=== PATIENT | male | born 1975 | race Caucasian/White ===

== ENCOUNTER 2018-06-29 05:40 | Day surgery (SDC) | payer MEDICARE ==
[~2018-06-29] VITALS: Ht 190.5 cm; Wt 117.4 kg
[~2018-06-29 05:40] MED LIST: ASPI-496 PO; CHOL5000 PO; LEVO100T5 PO; LEVO88TA4 PO; METH-356 PO; PRAV20TA2 PO
[2018-06-29] MEDS ORDERED: LACTATED RINGERS 1,000 ML IV SCH (06:05)
[2018-06-29 06:06] VITALS: BP 122/86
[2018-06-29] MEDS ORDERED: morphine SULFATE/PF 1 MG/ML, 10ML ONE (06:22)
[2018-06-29] MEDS ORDERED: LIDOCAINE 1%-EPI 1:100K, 30ML ONE (06:22)
[2018-06-29] MEDS ORDERED: LIDOCAINE-MPF 1%, 2ML INFIL ONE (06:30)
[2018-06-29] MEDS ORDERED: MIDAZOLAM 1 MG/ML, 2ML ONE (06:50)
[2018-06-29] MEDS ORDERED: FENTANYL PF 250 MCG/5ML ONE (06:50)
[2018-06-29] MEDS ORDERED: MEPERIDINE/PF 25MG/0.5ML IVPush PRN (07:00)
[2018-06-29] MEDS ORDERED: SCOPOLAMINE PATCH, 1.5MG PATCH.TD72 TD PRN (07:00)
[2018-06-29] MEDS ORDERED: hydrALAzine 20 MG/ML, 1ML IV PRN (07:00)
[2018-06-29] MEDS ORDERED: LABETALOL 5MG/ML, 20ML IV PRN (07:00)
[2018-06-29] MEDS ORDERED: ACETAMINOPHEN 325 MG TABLET PO PRN (07:00)
[2018-06-29] MEDS ORDERED: OXYcodone 5 MG/5 ML ORAL.SOL UDC PO PRN (07:00)
[2018-06-29] MEDS ORDERED: LORazepam 2 MG/ML, 1ML IVPush PRN (07:00)
[2018-06-29] MEDS ORDERED: METOCLOPRAMIDE 5 MG/ML, 2ML IV PRN (07:00)
[2018-06-29] MEDS ORDERED: CEFAZOLIN 1,000 MG ONE (07:18)
[2018-06-29] MEDS ORDERED: PROPOFOL 10 MG/ML, 20ML ONE (07:18)
[2018-06-29] MEDS ORDERED: DEXAMETHASONE 4 MG/ML, 1ML ONE (07:18)
[2018-06-29] MEDS ORDERED: ONDANSETRON 2MG/ML, 2ML ONE (07:18)
[2018-06-29] MEDS ORDERED: SUCCINYLCHOLINE 20 MG/ML, 10ML ONE (07:18)
[2018-06-29] MEDS ORDERED: LIDOCAINE 1%, 20ML ONE (08:16)
[2018-06-29] MEDS ORDERED: FENTANYL PF 100 MCG/2ML ONE (08:42)
[2018-06-29] MEDS: FENTANYL PF 100 MCG/2ML IV PRN ×2 (08:44→08:50)
[2018-06-29] MEDS ORDERED: KETOROLAC 30 MG/1 ML ONE (08:48)
[2018-06-29] MEDS ORDERED: KETOROLAC 30 MG/1 ML IVPush ONE (09:00)
[2018-06-29] MEDS ORDERED: METHADONE 10 MG TABLET PO ONE (09:00)
[2018-06-29] MEDS: HYDROmorphone 2 MG/ML, 1ML IVPush PRN ×2 (09:01→09:10)
[2018-06-29] MEDS ORDERED: HYDROmorphone 2 MG/ML, 1ML ONE (09:09)
[2018-06-29] MEDS ORDERED: OXYcodone 5 MG/5 ML ORAL.SOL UDC ONE (09:23)
== END 2018-06-29 10:35 | disposition home or self-care (01) ==
LOC: OUT 05:40
PROVIDERS: ATTEND Orthopaedic Surgery
DX: M67.261 Synovial hypertrophy, not elsewhere classified, right lower leg (principal); M22.41 Chondromalacia patellae, right knee; M79.4 Hypertrophy of (infrapatellar) fat pad; E03.9 Hypothyroidism, unspecified; E78.5 Hyperlipidemia, unspecified; Z88.5 Allergy status to narcotic agent; Z88.8 Allergy status to other drugs, medicaments and biological substances; Z79.82 Long term (current) use of aspirin
CPT/HCPCS: 27345; 29877; J0330; J0690; J1100; J1170; J1885; J2250; J2274; J2405; J2704; J3010; J3490; J7120